=== PATIENT | female | born 1935 | race African-American/Black ===

== ENCOUNTER 2023-06-25 18:04 | Emergency (ER) | payer MEDICARE, BC ==
[~2023-06-25] VITALS: Ht 167.6 cm; Wt 80.0 kg
[~2023-06-25 18:04] MED LIST: LEVO137T32
[2023-06-25 18:06] VITALS: TEMP 98.5; O2SAT 98
[2023-06-25] MEDS: SODIUM CHLORIDE 0.9% 1,000 ML IV ONE (19:02)
[2023-06-25 19:14] LABS: BASOPHILS % 0.3 % (0.0-2.0); EOSINOPHILS % 0.6 % (0.0-5.0); HEMATOCRIT. 30.6 % (36.0-48.0); HEMOGLOBIN. 10.1 g/dL (12.0-16.0); LYMPHOCYTES % 26.9 % (20.0-50.0); MEAN CORPUSCULAR HEMOGLOBIN 30.1 pg (28.0-32.0); MEAN CORPUSCULAR VOLUME 91.1 fL (81.0-99.0); MEAN PLATELET VOLUME 7.8 fl (7.4-10.4); MONOCYTES % 5.6 % (2.0-8.0); NEUTROPHILS % 66.6 % (40.0-76.0); PLATELET 267 x1000/uL (130-400); RED BLOOD CELL COUNT 3.36 mill/uL (4.2-5.4); RED CELL DISTRIBUTION WIDTH 13.2 % (11.6-14.6); WHITE BLOOD COUNT 4.9 x1000/uL (4.5-11.0)
[2023-06-25 19:30] LABS: ALANINE AMINOTRANSFERASE < 7 IU/L (10-49); ALBUMIN 4.1 g/dL (3.2-4.8); ASPARTATE AMINOTRANSFERASE 11 IU/L (<34); BILIRUBIN TOTAL 0.3 mg/dL (0.1-1.0); CALCIUM 8.6 mg/dL (8.7-10.4); CARBON DIOXIDE 20 mEq/L (21-32); CHLORIDE 114 mEq/L (98-107); ETHANOL BLOOD 163 mg/dL (<10); GLUCOSE 102 mg/dL (70-105); PROTEIN TOTAL 6.5 g/dL (6.0-8.3); SODIUM 144 mEq/L (136-145); TROPONIN I HIGH SENSITIVITY 7 ng/L (3.0-34); UREA NITROGEN BLOOD 16 mg/dL (9-23)
[2023-06-25 19:33] LABS: POTASSIUM 2.6 mEq/L (3.5-5.1)
[2023-06-25] MEDS: POTASSIUM CHLORIDE 20MEQ/PACKET PO ONE (20:21)
[2023-06-25 20:36] VITALS: BP 132/60; PULSE 74; RESP 13
== END 2023-06-25 20:55 | disposition home or self-care (01) ==
LOC: ER 18:04
DX: T65.91XA Toxic effect of unspecified substance, accidental (unintentional), initial encounter (principal); R55 Syncope and collapse; E87.6 Hypokalemia; I10 Essential (primary) hypertension; E05.80 Other thyrotoxicosis without thyrotoxic crisis or storm; Z85.9 Personal history of malignant neoplasm, unspecified; Y92.89 Other specified places as the place of occurrence of the external cause
CPT/HCPCS: 80053; 80320; 85025; 84484; 36415; 71045; 70450; 93005; 96360; 96361; 99285; J7030; G0480